=== PATIENT | female | born 1955 | race Asian ===

== ENCOUNTER 2018-03-01 20:38 | Emergency (ER) | payer BC ==
[~2018-03-01] VITALS: Ht 157.5 cm; Wt 63.6 kg
[2018-03-01 21:04] LABS: GLUCOSE,POINT OF CARE 115 MG/DL (70-110)
[2018-03-01] MEDS ORDERED: ALEN70TA48 PO (21:05)
[2018-03-01] MEDS ORDERED: METF-444 PO (21:05)
[2018-03-01] MEDS ORDERED: SIMV-260 PO (21:05)
[2018-03-01] MEDS ORDERED: CYCLOBENZAPRINE HCL 10 MG TABLET PO ONE (21:45)
[2018-03-01] MEDS ORDERED: KETOROLAC TROMETHAMINE 60 MG/2 ML VIAL IM ONE (22:00)
[2018-03-01 22:22] VITALS: BP 160/96
== END 2018-03-01 22:27 | disposition home or self-care (01) ==
LOC: EMS 20:39
DX: M25.511 Pain in right shoulder (principal); M54.6 Pain in thoracic spine; E11.9 Type 2 diabetes mellitus without complications; E78.00 Pure hypercholesterolemia, unspecified; I10 Essential (primary) hypertension; E05.90 Thyrotoxicosis, unspecified without thyrotoxic crisis or storm; E89.0 Postprocedural hypothyroidism; Z79.84 Long term (current) use of oral hypoglycemic drugs
CPT/HCPCS: 82962; 96372; 99283; J1885